=== PATIENT | female | born 1990 | race Caucasian/White ===

== ENCOUNTER 2016-11-10 07:42 | Emergency (ER) | payer MEDICAID ==
[2016-11-10] MEDS ORDERED: DEXAMETHASONE 10 MG/ML VIAL PO STA (08:53)
[2016-11-10] MEDS ORDERED: DEXAMETHASONE 10 MG/ML VIAL ONE (08:55)
[2016-11-10] MEDS ORDERED: CHERRY SYRUP 10 ML UDC PO ONE (08:55)
== END 2016-11-10 09:27 | disposition home or self-care (01) ==
DX: H66.003 Acute suppurative otitis media without spontaneous rupture of ear drum, bilateral (principal); R09.81 Nasal congestion; R05 Cough; F17.200 Nicotine dependence, unspecified, uncomplicated
CPT/HCPCS: 99283; A9270

== ENCOUNTER 2017-09-18 08:00 | Outpatient (CLI) | payer MEDICAID | END 2017-09-18 23:59 | disposition home or self-care (01) | LOC: LAB.R 08:00 | PROVIDERS: ATTEND Nurse Practitioner Obstetrics & Gynecology | DX: N76.0 Acute vaginitis (principal) | CPT/HCPCS: 87480; 87510; 87660 ==

== ENCOUNTER 2018-02-18 11:20 | Outpatient (CLI) | payer MEDICAID ==
[2018-02-18 12:04] LABS: BASOPHILS % (AUTO) 0.6 %; EOSINOPHILS % (AUTO) 0.4 %; HGB - HEMOGLOBIN 13.3 g/dL (12.0-16.0); LYMPHOCYTES # (AUTO) 1.6 10^3/uL (1.5-3.5); LYMPHOCYTES % (AUTO) 17.8 %; MEAN CORPUSCULAR HEMOGLOBIN 31.8 pg (27.0-31.0); MEAN CORPUSCULAR HGB CONC 35.1 g/dL (32.0-36.0); MEAN CORPUSCULAR VOLUME 90.6 fL (81.0-99.0); MEAN PLATELET VOLUME 8.8 fL (7.9-10.8); MONOCYTES # (AUTO) 0.6 10^3/uL (0.0-1.0); MONOCYTES % (AUTO) 6.2 %; NEUTROPHILS # (AUTO) 6.6 10^3/uL (1.5-6.6); PLT - PLATELET COUNT 174 10^3/uL (130-450); RED BLOOD COUNT 4.18 10^6/uL (4.20-5.40); RED CELL DISTRIBUTION WIDTH 13.2 % (12.0-15.0); WHITE BLOOD COUNT 8.8 x10^3/uL (4.8-10.8)
[2018-02-18 12:42] LABS: BILIRUBIN,URINE NEGATIVE (NEGATIVE); GLUCOSE, URINE (UA) NEGATIVE (NEGATIVE); KETONES,URINE (UA) NEGATIVE (NEGATIVE); LEUKOCYTE ESTERASE, URINE NEGATIVE (NEGATIVE); NITRITE,URINE NEGATIVE (NEGATIVE); OCCULT BLOOD,URINE NEGATIVE (NEGATIVE); PH,URINE 5.5 PH (5.0-7.5); PROTEIN,URINE NEGATIVE (NEGATIVE); UROBILINOGEN,URINE 0.2 (NORMAL) E.U./dL (NORMAL)
[2018-02-18 12:45] LABS: CLARITY,URINE CLEAR (CLEAR)
[2018-02-18 13:20] LABS: BACTERIA,URINE Moderate /HPF (None Seen); RBC,URINE 0-5 /HPF (0-5); SQUAMOUS EPITHELIAL CELL,UR FEW Squamous (<= Few)
[2018-02-19 15:38] LABS: HIV AG/AB 4TH GEN NON-REACTIVE (NON-REACTIVE)
[2018-02-19 18:56] LABS: HEPATITIS B SURFACE ANTIGEN NON-REACTIVE (NON-REACTIVE); HEPATITIS C ANTIBODY NON-REACTIVE (NON-REACTIVE)
== END 2018-02-18 11:21 | disposition home or self-care (01) ==
LOC: LAB 11:20
PROVIDERS: ATTEND Nurse Practitioner Obstetrics & Gynecology
DX: Z36.9 Encounter for antenatal screening, unspecified (principal); Z13.79 Encounter for other screening for genetic and chromosomal anomalies
CPT/HCPCS: 36415; 81001; 81599; 85025; 86592; 86762; 86803; 86850; 86900; 86901; 87340; 87389

== ENCOUNTER 2018-03-26 13:11 | Emergency (ER) | payer MEDICAID ==
[2018-03-26 15:08] LABS: BASOPHILS % (AUTO) 0.2 %; EOSINOPHILS % (AUTO) 0.4 %; HGB - HEMOGLOBIN 13.4 g/dL (12.0-16.0); LYMPHOCYTES # (AUTO) 1.6 10^3/uL (1.5-3.5); MEAN CORPUSCULAR HEMOGLOBIN 32.5 pg (27.0-31.0); MEAN CORPUSCULAR HGB CONC 35.2 g/dL (32.0-36.0); MEAN CORPUSCULAR VOLUME 92.5 fL (81.0-99.0); MEAN PLATELET VOLUME 8.6 fL (7.9-10.8); MONOCYTES # (AUTO) 0.7 10^3/uL (0.0-1.0); MONOCYTES % (AUTO) 6.2 %; NEUTROPHILS # (AUTO) 8.5 10^3/uL (1.5-6.6); NEUTROPHILS % (AUTO) 78.2 %; PLT - PLATELET COUNT 183 10^3/uL (130-450); RED BLOOD COUNT 4.12 10^6/uL (4.20-5.40); RED CELL DISTRIBUTION WIDTH 13.2 % (12.0-15.0); WHITE BLOOD COUNT 10.8 x10^3/uL (4.8-10.8)
[2018-03-26 15:19] LABS: ALBUMIN 3.4 g/dL (3.2-5.5); ALBUMIN/GLOBULIN RATIO 0.9 (1.0-2.2); BILIRUBIN,TOTAL 0.6 mg/dL (0.2-1.0); CALCIUM 8.9 mg/dL (8.5-10.3); CREATININE 0.4 mg/dL (0.4-1.0)
[2018-03-26 15:35] LABS: BILIRUBIN,URINE NEGATIVE (NEGATIVE); GLUCOSE, URINE (UA) NEGATIVE (NEGATIVE); KETONES,URINE (UA) NEGATIVE (NEGATIVE); LEUKOCYTE ESTERASE, URINE MODERATE (NEGATIVE); NITRITE,URINE POSITIVE (NEGATIVE); OCCULT BLOOD,URINE SMALL (NEGATIVE); PH,URINE 6.5 PH (5.0-7.5); PROTEIN,URINE NEGATIVE (NEGATIVE); UROBILINOGEN,URINE 0.2 (NORMAL) E.U./dL (NORMAL)
[2018-03-26] MEDS: SODIUM CHLORIDE 0.9% 1,000 ML IV ONE (15:38)
[2018-03-26 15:39] LABS: CLARITY,URINE CLOUDY (CLEAR)
[2018-03-26 15:50] LABS: BACTERIA,URINE Moderate /HPF (None Seen); SQUAMOUS EPITHELIAL CELL,UR FEW Squamous (<= Few)
[2018-03-26] MEDS: cefTRIAXone 1 GM in SODIUM CHLORIDE 0.9% MINIBAG 100 ML IV STA (16:14)
--- NOTE | 2018-03-26 16:44 | ED Physician Documentation ---
PD HPI NVD - Stated complaint Stated Complaint: NAUSEA/DIZZY/17WKS PREG - Chief complaint Chief Complaint: General - History obtained from History obtained from: Patient - History of Present Illness Timing - onset: How many days ago (3) Timing - duration: Days (3) Timing - details: Gradual onset, Still present Associated symptoms: Abdominal pain. No: Vaginal bleeding Improved by: Vomiting Worsened by: Position, Palpation Similar symptoms before: Has not had sx before Recently seen: Other (receiving routine pre-sandro care.) - Additonal information Additional information: 28-year-old female who is 17 weeks has developed acute nausea and vomiting about 3 days ago. She has been able to hold down some fluids and has not been able to eat food. She has some lower abdominal pain and some left flank pain she has not had fever. Review of Systems Constitutional: reports: Chills. denies: Fever Eyes: denies: Decreased vision Ears: denies: Ear pain Nose: denies: Congestion Throat: denies: Sore throat Cardiac: denies: Chest pain / pressure, Palpitations Respiratory: denies: Dyspnea, Cough GI: reports: Abdominal Pain, Nausea, Vomiting : denies: Dysuria, Frequency Skin: denies: Rash Musculoskeletal: reports: Back pain. 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 - Present Medications Home Medications: Ambulatory Orders Medication Instructions Recorded Confirmed Amox/Clav 875/125 [Augmentin] 1 each PO Q12H #14 tablet 03/26/18 - Allergies Allergies/Adverse Reactions: Allergies Allergy/AdvReac Type Severity Reaction Status Date / Time No Known Drug Allergies Allergy Verified 03/26/18 13:38 - Social History Does the pt smoke?: Yes Smoking Status: Current every day smoker Does the pt drink ETOH?: Yes Does the pt have substance abuse?: Yes - Immunizations Immunizations are current?: Yes - POLST Patient has POLST: No PD ED PE NORMAL - Vitals Vital signs reviewed: Yes (normal ) - General General: Alert and oriented X 3, No acute distress, Well developed/nourished - HEENT HEENT: Atraumatic, PERRL, EOMI - Neck Neck: Supple, no meningeal sign, No bony TTP - Cardiac Cardiac: RRR, No murmur - Respiratory Respiratory: No respiratory distress, Clear bilaterally - Abdomen Abdomen: Soft, Other (There is tenderness to bimanual palpation of the left kidney) - Back Back: No spinal TTP, Other (There is left CVA tenderness specifically and this is the kidney that is sonographically tender. ) - Derm Derm: Normal color, Warm and dry, No rash - Extremities Extremities: No deformity, No edema - Neuro Neuro: Alert and oriented X 3, forklift supervisor 2-12 intact, No motor deficit, No sensory deficit, Normal speech Eye Opening: Spontaneous Motor: Obeys Commands Verbal: Oriented GCS Score: 15 - Psych Psych: Normal mood, Normal affect Results - Vitals Vitals: Vital Signs - 24 hr 03/26/18 03/26/18 13:34 16:17 Temperature 36.8 C Heart Rate 71 62 Respiratory 16 18 Rate Blood Pressure 109/57 L 103/57 L O2 Saturation 100 100 Oxygen O2 Source Room air - Labs Labs: Laboratory Tests 03/26/18 03/26/18 03/26/18 15:00 15:00 15:25 WBC 10.8 RBC 4.12 L Hgb 13.4 Hct 38.1 MCV 92.5 MCH 32.5 H MCHC 35.2 RDW 13.2 Plt Count 183 MPV 8.6 Neut # (Auto) 8.5 H Lymph # (Auto) 1.6 [place] # (Auto) 0.7 Eos # (Auto) 0.0 Baso # (Auto) 0.0 Absolute Nucleated RBC 0.00 Nucleated RBC % 0.0 Sodium 134 L Potassium 3.7 Chloride 103 Carbon Dioxide 24 Anion Gap 7.0 BUN 6 Creatinine 0.4 Estimated GFR (MDRD) 191 Glucose 72 Calcium 8.9 Total Bilirubin 0.6 AST 15 ALT 16 Alkaline Phosphatase 42 Total Protein 7.0 Albumin 3.4 Globulin 3.6 Albumin/Globulin Ratio 0.9 L Lipase 21 L Urine Color YELLOW Urine Clarity CLOUDY Urine pH 6.5 Ur Specific [place] 1.025 Urine Protein NEGATIVE Urine Glucose (UA) NEGATIVE Urine Ketones NEGATIVE Urine Occult Blood SMALL H Urine Nitrite POSITIVE H Urine Bilirubin NEGATIVE Urine Urobilinogen 0.2 (NORMAL) Ur Leukocyte Esterase MODERATE H Urine RBC 6-10 H Urine WBC 11-25 H Ur Squamous Epith Cells FEW Squamous Urine Bacteria Moderate H Ur Microscopic Review INDICATED Urine Culture Comments INDICATED Procedures - Bedside sono Bedside sono by EMP: With use of bedside ultrasound the right kidney is imaged it is sonographically nontender the left kidney is imaged it is sonographically tender and there is no evidence of hydronephrosis or perinephric fluid. The fetus is imaged and appears viable moving well with a biparietal diameter indicating a age of 17 weeks 0 days and a heart rate of 144 bpm. - IVC sono (time) 1420 Bedside IVC sono: IVC measures (cm) (0.92), IVC collapsed c insp (cm) (complete) , Dehydration (est 1.5 liter deficit after 500ml in.) PD MEDICAL DECISION MAKING - ED course Complexity details: reviewed old records, reviewed results, re-evaluated patient , considered differential, d/w patient ED course: 28-year-old female 17 weeks has pyelonephritis she is a bit dehydrated her fetus appears viable. She is administered intravenous saline 2 L total and Rocephin 1 g. - Sepsis Event Vital Signs: Vital Signs - 24 hr 03/26/18 03/26/18 13:34 16:17 Temperature 36.8 C Heart Rate 71 62 Respiratory 16 18 Rate Blood Pressure 109/57 L 103/57 L O2 Saturation 100 100 Oxygen O2 Source Room air Departure - Departure Disposition: 01 Home, Self Care Clinical Impression: Pyelonephritis affecting in second trimester Condition: Stable Instructions: ED Kidney Infec Female Follow-Up: [facility] [Provider Group] Nuha Vizcaino DO [Provider Admit Priv/Credential] - Prescriptions: Amox/Clav 875/125 [Augmentin] 1 each PO Q12H #14 tablet
[2018-03-26 17:04] VITALS: BP 109/59
== END 2018-03-26 17:07 | disposition home or self-care (01) ==
LOC: ED 13:11
DX: O23.02 Infections of kidney in pregnancy, second trimester (principal); O99.282 Endocrine, nutritional and metabolic diseases complicating pregnancy, second trimester; E86.0 Dehydration; Z3A.17 17 weeks gestation of pregnancy; F17.200 Nicotine dependence, unspecified, uncomplicated
CPT/HCPCS: 36415; 80053; 81001; 81003; 83690; 85025; 87086; 87181; 99283

== ENCOUNTER 2018-03-31 08:00 | Outpatient (CLI) | payer MEDICAID | END 2018-03-31 08:01 | disposition home or self-care (01) | LOC: LAB.R 08:00 | PROVIDERS: ATTEND Obstetrics & Gynecology | DX: R82.99 Other abnormal findings in urine (principal) | CPT/HCPCS: 87086 ==

== ENCOUNTER 2018-05-14 07:52 | Outpatient (CLI) | payer MEDICAID ==
--- NOTE | 2018-05-14 09:36 | Ultrasound Report ---
Procedure Date: 05/14/2018 Accession Number: [id number] / [id number] Procedure: US - OB Detailed Eval CPT Code: FULL RESULT: EXAM: COMPLETE OBSTETRICAL ULTRASOUND EXAM DATE: 05/14/2018 09:03 AM. CLINICAL HISTORY: anatomic survey. COMPARISON: None. TECHNIQUE: Real-time sonographic evaluation of the fetus performed by the digital experience manager. Multiple pharmaceutical sales representative static images were saved for review. Additional transvaginal imaging to more accurately evaluate cervical length/placental position/etc. DATING: EGA 23 weeks/6 days with ELIECER 09/04/2018 based on the current ultrasound. GENERAL EVALUATION cardiac activity: 146 bpm. movement: Visualized. Presentation: Cephalic. Placenta: Anterior position. No evidence for previa. Umbilical cord: 3 vessel cord. Central placental cord origin. Amniotic fluid: Subjectively normal. MVP 3.9 cm. BIOMETRY Bi-Parietal Diameter (BPD): 5.8 cm, 23 weeks/5 days Head Circumference (HC): 21.9 cm, 24 weeks/0 days Abdominal Circumference (AC): 19.0 cm, 23 weeks/5 days Femur Length (FL): 4.2 cm, 23 weeks/5 days Estimated Weight: 623 gm. ANATOMY The intracranial structures, profile, face/nose/lips, spine, 4 chamber heart and outflow tracts, stomach, abdominal wall and cord insertion, diaphragm, kidneys, bladder, and extremities were visualized and demonstrate no abnormality. MATERNAL STRUCTURES Uterus: Unremarkable. Cervix: Long and closed. Transabdominal length 5.3 cm. The adnexa are not well seen. Free fluid: None. IMPRESSION: 1. Truong live intrauterine with gestational age 23 weeks/6 days based on current ultrasound. 2. Normal anatomic survey. No anatomic abnormalities are detected at this time. RADIA
== END 2018-05-14 07:53 | disposition home or self-care (01) ==
LOC: DI 07:52
PROVIDERS: ATTEND Registered Nurse
DX: Z34.82 Encounter for supervision of other normal pregnancy, second trimester (principal)
CPT/HCPCS: 76811

== ENCOUNTER 2018-05-28 21:14 | Observation (INO) | payer MEDICAID ==
[2018-05-28 22:32] LABS: BILIRUBIN,URINE NEGATIVE (NEGATIVE); GLUCOSE, URINE (UA) NEGATIVE (NEGATIVE); KETONES,URINE (UA) NEGATIVE (NEGATIVE); LEUKOCYTE ESTERASE, URINE NEGATIVE (NEGATIVE); NITRITE,URINE NEGATIVE (NEGATIVE); OCCULT BLOOD,URINE NEGATIVE (NEGATIVE); PROTEIN,URINE NEGATIVE (NEGATIVE); UROBILINOGEN,URINE 0.2 (NORMAL) E.U./dL (NORMAL)
--- NOTE | 2018-05-28 22:32 | PROVIDER PROGRESS NOTE ---
Subjective - Prog Note Date Prog Note Date: 05/28/18 Prog Note Time: 22:45 - Subjective Subjective: Patient called earlier in the evening to report uterine contractions and flank pain. She is concerned about about the flank pain due to prior history of pyelonephritis and currently on amoxicillin prophylaxis. She also notes increasing intensity Fredrick Venegas contractions throughout the day. However the frequency remains less than 10 an hour. She has no bleeding to report but does have a runny discharge. Note she had sexual intercourse this morning. She has no fevers, chills, recent illness, nausea, vomiting or infectious exposure. 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 Objective - Lab Results Fish Bones: 05/28/18 22:36 Physical Exam - Physical Exam General: positive: No acute distress, Anxious HEENT: positive: Moist mucous membranes Neck: positive: Supple w/out meningeal sx, Adenopathy, Thyroid normal Cardiac: positive: Regular Rate Resipratory: positive: Clear to ausultation rose mary Abdomen: positive: Normal Bowel sounds, Other (Minimal left flank pain to percussion) Female : positive: Normal external (Pubic hair shaven no lesions), Vaginal Discharge (White runny discharge possibly semen, ROM plus, GC chlamydia taken could not do fibronectin because of recent intercourse), Enlarged uterus ( Appropriate size for 26 weeks, nontender a contractile to pile patient), Other ( External monitor is reactive for 26 week gestation no contractions noted no D cells adequate variability) Back: positive: Vertebral tenderness (As noted in the abdominal sac section minimal left flank tenderness to percussion) Extremities: positive: Normal ROM, Non tender Skin: positive: Warm and dry, Other (Decorative tattoos) Assessment/Plan - Assessment/Plan Assessment: Patient reported runny vaginal discharge that was explainable by recent sexual intercourse. There is been no regular contractions and negative cervical change. Unfortunately, ROM plus was positive. Semen should not affect ROM plus and so we are uncertain if this is a true positive or false positive. Will begin investigation of her fluid Volume and placed in observation status. Plan: * Admit as observation, * patient to lay flat and have a second cervical exam with fern test tomorrow, * repeat CBC to detect any Developing leukocytosis.
[2018-05-28 22:33] LABS: CLARITY,URINE CLEAR (CLEAR)
[2018-05-28 22:40] LABS: BASOPHILS # (AUTO) 0.1 10^3/uL (0.0-0.1); BASOPHILS % (AUTO) 0.6 %; EOSINOPHILS # (AUTO) 0.1 10^3/uL (0.0-0.7); EOSINOPHILS % (AUTO) 0.9 %; HGB - HEMOGLOBIN 11.3 g/dL (12.0-16.0); LYMPHOCYTES # (AUTO) 2.1 10^3/uL (1.5-3.5); LYMPHOCYTES % (AUTO) 20.8 %; MEAN CORPUSCULAR HEMOGLOBIN 32.5 pg (27.0-31.0); MEAN CORPUSCULAR HGB CONC 35.9 g/dL (32.0-36.0); MEAN CORPUSCULAR VOLUME 90.6 fL (81.0-99.0); MEAN PLATELET VOLUME 8.8 fL (7.9-10.8); MONOCYTES # (AUTO) 0.9 10^3/uL (0.0-1.0); MONOCYTES % (AUTO) 9.3 %; NEUTROPHILS # (AUTO) 6.9 10^3/uL (1.5-6.6); NEUTROPHILS % (AUTO) 68.4 %; PLT - PLATELET COUNT 168 10^3/uL (130-450); RED BLOOD COUNT 3.46 10^6/uL (4.20-5.40); RED CELL DISTRIBUTION WIDTH 12.7 % (12.0-15.0); WHITE BLOOD COUNT 10.1 x10^3/uL (4.8-10.8)
[2018-05-28 22:43] LABS: BACTERIA,URINE None Seen /HPF (None Seen); RBC,URINE None Seen /HPF (0-5); SQUAMOUS EPITHELIAL CELL,UR MOD Squamous (<= Few)
[2018-05-28 22:48] LABS: RUPTURE OF MEMBRANES PLUS POSITIVE (NEGATIVE)
[2018-05-28] MEDS ORDERED: BETAMETHASONE 30 MG/5 ML VIAL IM STA (23:11)
[2018-05-28 23:50] LABS: RUPTURE OF MEMBRANES PLUS NEGATIVE (NEGATIVE)
[2018-05-28] MEDS ORDERED: ZOLPIDEM 5 MG TABLET PO PRN (23:50)
[2018-05-28] MEDS ORDERED: HYDROcod/ACETAM 5/325 MG TABLET PO PRN (23:50)
[2018-05-28] MEDS ORDERED: ONDANSETRON ODT 4 MG TABLET TL PRN (23:50)
[2018-05-28] MEDS ORDERED: SODIUM CHLORIDE FLUSH 0.9% 10 ML SYRINGE IVP PRN (23:50)
[2018-05-28] MEDS ORDERED: ACETAMINOPHEN 325 MG TABLET PO PRN (23:50)
[2018-05-28] MEDS ORDERED: LACTATED RINGERS 1,000 ML IV ONE (23:56)
[2018-05-29] MEDS ORDERED: SODIUM CHLORIDE FLUSH 0.9% 10 ML SYRINGE IVP SCH (01:00)
--- NOTE | 2018-05-29 03:06 | Ultrasound Report ---
Reason: possible rupture of membranes Procedure Date: 05/29/2018 Accession Number: [id number] / [id number] Procedure: US - OB Limited CPT Code: FULL RESULT: EXAM: FOLLOW-UP OBSTETRICAL ULTRASOUND EXAM DATE: 05/29/2018 12:57 AM. CLINICAL HISTORY: Possible rupture of membranes. COMPARISON: 05/14/2018. TECHNIQUE: Real-time sonographic evaluation of the fetus performed by the contract administration manager. Multiple industrial relations representative static images were saved for review. DATING: Established EGA 26 weeks 0 days with ELIECER 09/04/2018 based on prior ultrasound. EGA 24 weeks 6 days with ELIECER 09/12/2018 based on the current ultrasound. GENERAL EVALUATION [place] . Cardiac activity: 132 bpm. movement: Visualized. Presentation: Cephalic oblique. Placenta: Anterior position. Amniotic fluid: Normal. COSTA 19.1 cm. MVP 6.2 cm. BIOMETRY Bi-Parietal Diameter (BPD): 6.2 cm, 25 weeks 1 day Head Circumference (HC): 23.3 cm, 25 weeks 2 days Abdominal Circumference (AC): 19.6 cm, 25 weeks 2 days Femur Length (FL): 4.4 cm, 24 weeks 2 days Estimated Weight: 697 g. MATERNAL STRUCTURES Cervical length measures 6.2 cm on transabdominal images. IMPRESSION: 1. Truong live intrauterine with gestational age 26 weeks 0 days based on established dates. 2. Estimated weight 697 g. 3. Amniotic fluid volume appears normal. 3. Cervix appears long and closed on transabdominal images, measuring 6.2 cm. CINDY
[2018-05-29 07:40] VITALS: BP 108/58
[2018-05-29 08:01] LABS: BASOPHILS % (AUTO) 0.2 %; EOSINOPHILS % (AUTO) 0.1 %; HGB - HEMOGLOBIN 12.3 g/dL (12.0-16.0); LYMPHOCYTES % (AUTO) 9.7 %; MEAN CORPUSCULAR HGB CONC 35.3 g/dL (32.0-36.0); MEAN CORPUSCULAR VOLUME 90.6 fL (81.0-99.0); MEAN PLATELET VOLUME 8.8 fL (7.9-10.8); MONOCYTES # (AUTO) 0.1 10^3/uL (0.0-1.0); MONOCYTES % (AUTO) 1.1 %; NEUTROPHILS # (AUTO) 9.1 10^3/uL (1.5-6.6); NEUTROPHILS % (AUTO) 88.9 %; PLT - PLATELET COUNT 174 10^3/uL (130-450); RED BLOOD COUNT 3.84 10^6/uL (4.20-5.40); RED CELL DISTRIBUTION WIDTH 12.5 % (12.0-15.0); WHITE BLOOD COUNT 10.2 x10^3/uL (4.8-10.8)
--- NOTE | 2018-05-29 08:04 | PROVIDER PROGRESS NOTE ---
Subjective - Prog Note Date Prog Note Date: 05/29/18 Prog Note Time: 06:30 - Subjective Pt reports feeling: Improved Subjective: Ms. Vela reports only rare contractions. She is not experiencing more leakage of fluid. No fevers chills or problems experienced overnight. Objective - Vital Signs/Intake & Output Vital Signs: Vital Signs x48h Temp Pulse Resp BP Pulse Ox 05/29/18 07:37 97.7 F 61 16 108/58 L 100 Intake & Output: Intake & Output 05/26/18 05/27/18 05/28/18 05/29/18 23:59 23:59 23:59 23:59 Intake Total 1000 Output Total 1230 Balance -230 - Lab Results Fish Bones: 05/29/18 07:56 Other Labs: Lab Results x24hrs 05/29/18 05/28/18 05/28/18 Range/Units 07:56 23:22 22:36 WBC 10.2 10.1 (4.8-10.8) x10^3/uL RBC 3.84 L 3.46 L (4.20-5.40) 10^6/uL Hgb 12.3 11.3 L (12.0-16.0) g/dL Hct 34.7 L 31.4 L (37.0-47.0) % MCV 90.6 90.6 (81.0-99.0) fL MCH 32.0 H 32.5 H (27.0-31.0) pg MCHC 35.3 35.9 (32.0-36.0) g/dL RDW 12.5 12.7 (12.0-15.0) % Plt Count 174 168 (130-450) 10^3/uL MPV 8.8 8.8 (7.9-10.8) fL Neut # (Auto) 9.1 H 6.9 H (1.5-6.6) 10^3/uL Lymph # (Auto) 1.0 L 2.1 (1.5-3.5) 10^3/uL [place] # (Auto) 0.1 0.9 (0.0-1.0) 10^3/uL Eos # (Auto) 0.0 0.1 (0.0-0.7) 10^3/uL Baso # (Auto) 0.0 0.1 (0.0-0.1) 10^3/uL Absolute Nucleated RBC 0.00 0.01 x10^3/uL Nucleated RBC % 0.0 0.1 /100WBC Urine Color Urine Clarity (CLEAR) Urine pH (5.0-7.5) PH Ur Specific [place] (1.002-1.030) Urine Protein (NEGATIVE) mg/dL Urine Glucose (UA) (NEGATIVE) mg/dL Urine Ketones (NEGATIVE) mg/dL Urine Occult Blood (NEGATIVE) Urine Nitrite (NEGATIVE) Urine Bilirubin (NEGATIVE) Urine Urobilinogen (NORMAL) E.U./dL Ur Leukocyte Esterase (NEGATIVE) Urine RBC (0-5) /HPF Urine WBC (0-5) /HPF Ur Squamous Epith Cells (<= Few) Urine Bacteria (None Seen) /HPF Urine Culture Comments Membranes Rupture NEGATIVE (NEGATIVE) 05/28/18 05/28/18 Range/Units 22:15 21:40 WBC (4.8-10.8) x10^3/uL RBC (4.20-5.40) 10^6/uL Hgb (12.0-16.0) g/dL Hct (37.0-47.0) % MCV (81.0-99.0) fL MCH (27.0-31.0) pg MCHC (32.0-36.0) g/dL RDW (12.0-15.0) % Plt Count (130-450) 10^3/uL MPV (7.9-10.8) fL Neut # (Auto) (1.5-6.6) 10^3/uL Lymph # (Auto) (1.5-3.5) 10^3/uL [place] # (Auto) (0.0-1.0) 10^3/uL Eos # (Auto) (0.0-0.7) 10^3/uL Baso # (Auto) (0.0-0.1) 10^3/uL Absolute Nucleated RBC x10^3/uL Nucleated RBC % /100WBC Urine Color YELLOW Urine Clarity CLEAR (CLEAR) Urine pH 6.0 (5.0-7.5) PH Ur Specific [place] >=1.030 H (1.002-1.030) Urine Protein NEGATIVE (NEGATIVE) mg/dL Urine Glucose (UA) NEGATIVE (NEGATIVE) mg/dL Urine Ketones NEGATIVE (NEGATIVE) mg/dL Urine Occult Blood NEGATIVE (NEGATIVE) Urine Nitrite NEGATIVE (NEGATIVE) Urine Bilirubin NEGATIVE (NEGATIVE) Urine Urobilinogen 0.2 (NORMAL) (NORMAL) E.U./dL Ur Leukocyte Esterase NEGATIVE (NEGATIVE) Urine RBC None Seen (0-5) /HPF Urine WBC 0-3 (0-5) /HPF Ur Squamous Epith Cells MOD Squamous H (<= Few) Urine Bacteria None Seen (None Seen) /HPF Urine Culture Comments INDICATED Membranes Rupture POSITIVE A (NEGATIVE) Physical Exam - Physical Exam General: positive: No acute distress, Alert HEENT: positive: Moist mucous membranes Neck: positive: Supple w/out meningeal sx Cardiac: positive: Regular Rate Resipratory: positive: Clear to ausultation rose mary Abdomen: positive: Normal Bowel sounds, Other (No tenderness) Female : positive: Enlarged uterus (Uterus appropriate size.; Normal tone no contractions close), Other (EFM category 1 for gestational age) Back: positive: Vertebral tenderness (Minimal left vertebral tenderness continues) Skin: positive: Warm and dry Neurologic: positive: Alert and Oriented X 3, Normal Sensation, Normal Speech Assessment/Plan - Assessment/Plan Assessment: Patient laid for 6 hours to allow collection of any fluid if present. Speculum exam found no fluid and firm test is negative. Therefore initial ROM plus test was a false positive. Patient is received one injection of betamethasone. Cervical exam is unchanged at closed high and thick. Plan: Will discharge patient this morning. She will return on Saturday morning for second betamethasone injection. Reviewed warning sign and callback instructions. In terms of flank pain urinalysis and CBC are negative and therefore no hard evidence of recurrent pyelonephritis. Patient is urged to continue amoxicillin antibiotics prophylactics
--- NOTE | 2018-05-29 08:10 | Discharge Plan ---
Discharge Plan Disposition: 01 Home, Self Care Condition: Good Diet: Regular Shower Restrictions: No Driving Restrictions: No No Smoking: If you smoke, Please STOP! Call for help. Follow-up with: Lucila Jones ARNP [Primary Care Provider] - Nuha Vizcaino DO [Provider Admit Priv/Credential] -
[2018-05-29] MEDS ORDERED: POLYETHYLENE GLYCOL 3350 17 GM PACKET PO SCH (09:00)
== END 2018-05-29 09:00 | disposition home or self-care (01) ==
LOC: WFO 21:14 → FBP 21:17 → WFO 23:49 → FBP 23:50
PROVIDERS: ADMIT Obstetrics & Gynecology; ATTEND Obstetrics & Gynecology
DX: O47.02 False labor before 37 completed weeks of gestation, second trimester (principal); O99.89 Other specified diseases and conditions complicating pregnancy, childbirth and the puerperium; R10.9 Unspecified abdominal pain; Z87.448 Personal history of other diseases of urinary system; Z79.2 Long term (current) use of antibiotics; Z3A.26 26 weeks gestation of pregnancy
CPT/HCPCS: 36415; 76815; 81001; 84112; 85025; 87086; 87491; 87591; 96372; 99213; A9270; G0378; J7120; Q0162

== ENCOUNTER 2018-05-30 08:01 | Outpatient (CLI) | payer MEDICAID ==
[2018-05-30] MEDS ORDERED: BETAMETHASONE 30 MG/5 ML VIAL IM ONE (08:13)
== END 2018-05-30 08:40 | disposition home or self-care (01) ==
LOC: WFO 08:01 → FBP 08:08 → WFO 08:40
PROVIDERS: ATTEND Obstetrics & Gynecology
DX: Z34.82 Encounter for supervision of other normal pregnancy, second trimester (principal)
CPT/HCPCS: 96372

== ENCOUNTER 2018-06-24 10:29 | Outpatient (CLI) | payer MEDICAID ==
[2018-06-24] MEDS ORDERED: AMOX/CLAV 875 MG/125 MG TABLET PO ONE (11:00)
[2018-06-24 11:32] LABS: BILIRUBIN,URINE NEGATIVE (NEGATIVE); GLUCOSE, URINE (UA) NEGATIVE (NEGATIVE); KETONES,URINE (UA) NEGATIVE (NEGATIVE); LEUKOCYTE ESTERASE, URINE MODERATE (NEGATIVE); NITRITE,URINE NEGATIVE (NEGATIVE); OCCULT BLOOD,URINE NEGATIVE (NEGATIVE); PROTEIN,URINE NEGATIVE (NEGATIVE); UROBILINOGEN,URINE 0.2 (NORMAL) E.U./dL (NORMAL)
[2018-06-24 11:45] LABS: CLARITY,URINE CLEAR (CLEAR); RBC,URINE None Seen /HPF (0-5); SQUAMOUS EPITHELIAL CELL,UR MOD Squamous (<= Few)
[2018-06-24 11:46] LABS: BACTERIA,URINE Few /HPF (None Seen)
--- NOTE | 2018-06-24 12:32 | Ultrasound Report ---
Reason: iugr Procedure Date: 06/24/2018 Accession Number: [id number] / [id number] Procedure: US - OB Biophysical Profile CPT Code: FULL RESULT: EXAM: BIOPHYSICAL PROFILE EXAM DATE: 06/24/2018 11:55 AM. CLINICAL HISTORY: Intrauterine growth restriction. COMPARISON: None. TECHNIQUE: Real-time sonographic evaluation of the fetus performed by the machine sewer. Multiple inventory representative static images were saved for review. DATING: Established EGA 29 weeks 5 days with ELIECER 09/04/2018. GENERAL EVALUATION [place] . Cardiac activity: 140 bpm. movement: Visualized. Presentation: Cephalic. Placenta: Anterior position. No evidence for previa or abruption. Amniotic fluid: Normal. COSTA 14.7 cm. MVP 4.2 cm. BIOPHYSICAL PROFILE Breathing = 2 Movement = 2 Tone = 2 Amniotic Fluid = 2 Total 8/8 Three-vessel cord. The umbilical cord systolic-diastolic ratio is mean 3.0 with upper limits 3.6. SD ratio near cord insertion is 3.39, mid 2.81, near placental insertion 3.24. IMPRESSION: 1. Truong live intrauterine with gestational age 29 weeks 5 days based on established ELIECER. 2. Biophysical profile score 8 of 8. CINDY
[2018-06-24 12:36] VITALS: BP 110/59
== END 2018-06-24 14:00 | disposition home or self-care (01) ==
LOC: WFO 10:29 → FBP 10:33 → WFO 14:00
PROVIDERS: ATTEND Obstetrics & Gynecology
DX: O36.5930 Maternal care for other known or suspected poor fetal growth, third trimester, not applicable or unspecified (principal); Z3A.29 29 weeks gestation of pregnancy; Z87.440 Personal history of urinary (tract) infections
CPT/HCPCS: 59020; 76819; 81001; 87086; 93975; A9270

== ENCOUNTER 2018-06-28 11:10 | Outpatient (CLI) | payer MEDICAID ==
[2018-06-28 11:25] VITALS: BP 118/71
--- NOTE | 2018-06-28 13:07 | Ultrasound Report ---
Reason: IUGR Procedure Date: 06/28/2018 Accession Number: [id number] / [id number] Procedure: US - OB Biophysical Profile CPT Code: FULL RESULT: EXAM: BIOPHYSICAL PROFILE EXAM DATE: 06/28/2018 12:03 PM. CLINICAL HISTORY: IUGR. COMPARISON: OB BIOPHYSICAL PROFILE 06/24/2018 10:59 AM. TECHNIQUE: Real-time sonographic evaluation of the fetus performed by the advisory services associate. Multiple sales representative jewelry static images were saved for review. DATING: Established EGA 30 weeks 4 days with ELIECER 09/02/2018. GENERAL EVALUATION [place] . Cardiac activity: 130 bpm. movement: Visualized. Presentation: Cephalic. Placenta: Anterior position. No evidence for previa or abruption. Amniotic fluid: Normal. COSTA 14.9 cm. MVP 5.2 cm. BIOPHYSICAL PROFILE Breathing = 2 Movement = 2 Tone = 2 Amniotic Fluid = 2 Total 05/07 IMPRESSION: 1. Truong live intrauterine with gestational age 30 weeks 4 days based on established ELIECER (ELIECER 09/02/2018). 2. Biophysical profile score 8 of 8. CINDY
== END 2018-06-28 12:23 | disposition home or self-care (01) ==
LOC: WFO 11:10 → FBP 11:15 → WFO 12:23
PROVIDERS: ATTEND Obstetrics & Gynecology
DX: O09.893 Supervision of other high risk pregnancies, third trimester (principal); Z3A.30 30 weeks gestation of pregnancy
CPT/HCPCS: 59025; 76819

== ENCOUNTER 2018-06-30 11:14 | Outpatient (CLI) | payer MEDICAID ==
[2018-06-30 11:29] VITALS: BP 112/62
--- NOTE | 2018-06-30 15:45 | Ultrasound Report ---
Reason: IUGR Procedure Date: 06/30/2018 Accession Number: [id number] / [id number] Procedure: US - OB Biophysical Profile CPT Code: FULL RESULT: EXAM: BIOPHYSICAL PROFILE EXAM DATE: 06/30/2018 03:02 PM. CLINICAL HISTORY: IUGR. COMPARISON: OB biophysical profile 06/28/2018 12:03 PM. TECHNIQUE: Real-time sonographic evaluation of the fetus performed by the heel shaver. Multiple public health representative static images were saved for review. DATING: Established EGA 30 weeks 6 days with ELIECER 09/02/2018. GENERAL EVALUATION [place] . Cardiac activity: 142 bpm. movement: Visualized. Presentation: Cephalic. Placenta: Anterior position. No evidence for previa or abruption. Amniotic fluid: Normal. COSTA 15.6 cm. MVP 5 cm. BIOPHYSICAL PROFILE Breathing = 2 Movement = 2 Tone = 2 Amniotic Fluid = 2 Total 8/8 Umbilical cord Doppler ratios where obtained as follows: Abdominal: 3.3 Placental: 4.7 Mid cord: 2.8 Mean: 3.6 Biparietal diameter: 7.6 cm for 30 weeks and 5 days Head circumference: 28.4 cm for 31 weeks and 1 day Abdominal circumference: 26.3 cm for 30 weeks and 3 days Femur length: 6.1 cm for 31 weeks and 3 days Estimated weight: 1657 g for the 39th percentile IMPRESSION: 1. Truong live intrauterine with gestational age 30 weeks and 6 days based on provider established due date, concordant with ultrasound. 2. Biophysical profile score 8 of 8. CINDY
== END 2018-06-30 15:50 | disposition home or self-care (01) ==
LOC: WFO 11:14 → FBP 11:16 → WFO 15:50
PROVIDERS: ATTEND Obstetrics & Gynecology
DX: Z03.74 Encounter for suspected problem with fetal growth ruled out (principal)
CPT/HCPCS: 59025; 76819; 93975

== ENCOUNTER 2018-07-11 11:51 | Outpatient (CLI) | payer MEDICAID ==
[2018-07-11 12:13] VITALS: BP 117/68
[2018-07-11] MEDS ORDERED: ONDANSETRON ODT 4 MG TABLET TL PRN (12:29)
[2018-07-11 12:53] LABS: BILIRUBIN,URINE NEGATIVE (NEGATIVE); GLUCOSE, URINE (UA) NEGATIVE (NEGATIVE); KETONES,URINE (UA) 40 mg/dL (NEGATIVE); LEUKOCYTE ESTERASE, URINE SMALL (NEGATIVE); NITRITE,URINE NEGATIVE (NEGATIVE); OCCULT BLOOD,URINE NEGATIVE (NEGATIVE); PH,URINE 7.5 PH (5.0-7.5); PROTEIN,URINE NEGATIVE (NEGATIVE); UROBILINOGEN,URINE 0.2 (NORMAL) E.U./dL (NORMAL)
[2018-07-11 12:59] LABS: BASOPHILS % (AUTO) 0.5 %; EOSINOPHILS % (AUTO) 0.1 %; HGB - HEMOGLOBIN 11.3 g/dL (12.0-16.0); LYMPHOCYTES % (AUTO) 10.7 %; MEAN CORPUSCULAR HEMOGLOBIN 31.2 pg (27.0-31.0); MEAN CORPUSCULAR HGB CONC 35.6 g/dL (32.0-36.0); MEAN CORPUSCULAR VOLUME 87.6 fL (81.0-99.0); MEAN PLATELET VOLUME 8.9 fL (7.9-10.8); MONOCYTES # (AUTO) 0.7 10^3/uL (0.0-1.0); NEUTROPHILS # (AUTO) 7.4 10^3/uL (1.5-6.6); NEUTROPHILS % (AUTO) 80.7 %; PLT - PLATELET COUNT 159 10^3/uL (130-450); RED BLOOD COUNT 3.62 10^6/uL (4.20-5.40); RED CELL DISTRIBUTION WIDTH 13.2 % (12.0-15.0); WHITE BLOOD COUNT 9.2 x10^3/uL (4.8-10.8)
[2018-07-11] MEDS ORDERED: HYDROcod/ACETAM 5/325 MG TABLET PO SCH (13:00)
[2018-07-11 13:07] LABS: CREATININE 0.4 mg/dL (0.4-1.0)
[2018-07-11 13:09] LABS: URIC ACID 2.8 mg/dL (2.6-7.2)
[2018-07-11 13:11] LABS: CLARITY,URINE CLEAR (CLEAR); RBC,URINE 0-5 /HPF (0-5); SQUAMOUS EPITHELIAL CELL,UR MANY Squamous (<= Few)
[2018-07-11 13:12] LABS: BACTERIA,URINE Few /HPF (None Seen)
[2018-07-11 13:17] LABS: CREATININE,URINE 83.1 mg/dL; PROTEIN/CREATININE RATIO,URINE 0.2 (<=0.2)
== END 2018-07-11 13:50 | disposition home or self-care (01) ==
LOC: WFO 11:51 → FBP 11:52 → WFO 13:50
PROVIDERS: ATTEND Obstetrics & Gynecology
DX: O99.89 Other specified diseases and conditions complicating pregnancy, childbirth and the puerperium (principal); O21.2 Late vomiting of pregnancy; R51 Headache; Z3A.32 32 weeks gestation of pregnancy
CPT/HCPCS: 36415; 81001; 82565; 82570; 83615; 84156; 84450; 84550; 85025; 85384; 99213; A9270; Q0162; 87086